=== PATIENT | male | born 1970 | race Caucasian/White ===

== ENCOUNTER 2022-11-29 12:30 | Emergency (ER) | payer BC, SELFPAY ==
--- NOTE | ~2022-11-29 | CT_ITS ---
EXAMINATION: CT BRAIN WITHOUT CONTRAST. CHEST X-RAY. CLINICAL INFORMATION: Dizziness. COMPARISON: None TECHNIQUE: 5 mm thin axial and reformatted 2 mm thin sagittal and coronal images of brain were obtained without contrast. DLP 769. This CT examination was performed using dose optimization technique as appropriate, variously including the following: Automated exposure control Adjustment of MA and/or KV according to patient size(this includes techniques or standardized protocols for targeted exams where dose is matched to indication/reason for exam; extremities or head. Use of iterative reconstruction techniques. Chest x-ray 2 views. FINDINGS: Chest x-ray: The lungs are well-expanded and clear. The heart size and pulmonary vascularity is normal. No gross bony abnormality seen except for minimal ventral mid dorsal spine spondylosis. Brain: There is no acute intra-axial, extra-axial bleed, masses or midline shift. There is no acute infarction in evolution. There is no edema. The mabry to white matter differentiation is maintained. The lateral ventricles are somewhat symmetrical but normal size. No posterior fossa abnormality seen. Mild atherosclerotic calcification of basilar artery is noted. Bone windows reveal sessile zeeshan hole findings along the right frontal and parietal lobe, likely from remote intervention. There is no scalp soft tissue abnormality. Bilateral paranasal sinuses and mastoid air cells are well-aerated. CT/CT head/brain wo IV con IMPRESSION: 1. Unremarkable chest exam. 2. No acute intracranial process seen.
[2022-11-29 12:32] VITALS: BP 164/89; PULSE 70; RESP 18; TEMP 37; O2SAT 99; BMI 33.3
--- NOTE | 2022-11-29 12:32 | ED_ITS ---
HPI - General Adult General Chief complaint: General Medical <BINH Meza - Last Filed: 11/29/22 12:36> Stated complaint: vertigo, rash on L arm <BINH Meza Last Filed: 11/29/22 12:36> Time Seen by Provider: 11/29/22 13:02 <BINH Meza Last Filed: 11/29/22 12:36> Source: patient <BINH Goins Last Filed: 11/29/22 18:37> Mode of arrival: ambulatory <BINH Goins Last Filed: 11/29/22 18:37> History of Present Illness HPI narrative: 52-year-old male with a past medical history of Meniere's disease, CAD s/p stent placement, HTN, diabetes, presenting to the ED complaining of intermittent room spinning dizziness since last week with rash noted to left upper arm x yesterday. Denies dizziness at present. Admits rash is pruritic. Denies fever, chills, headache, vision changes/loss, nausea/vomiting, chest pain/shortness of breath, abdominal pain, weakness <BINH Goins Last Filed: 11/29/22 18:37> Onset (ago): week(s) <BINH Goins Last Filed: 11/29/22 18:37> Related Data Home medications: Previous Rx's Medication Instructions Recorded meclizine 25 mg tablet 25 mg PO TID PRN dizziness #14 tabs 11/29/22 prednisone 10 mg tablet 10 mg PO DAILY #20 tabs 11/29/22 valacyclovir 1 gram tablet 1,000 mg PO Q8H 7 days #21 tabs 11/29/22 (Valtrex) <BINH Meza - Last Filed: 11/29/22 12:36> Allergies/adverse reactions: Allergies Allergy/AdvReac Type Severity Reaction Status Date / Time No Known Allergies Allergy Verified 11/29/22 12:32 <BINH Meza Last Filed: 11/29/22 12:36> Review of Systems Review of Systems: Constitutional: No Fever, No Chills, No Fatigue, No Malaise ENT/Mouth: No Ear Pain, No Nasal Congestion, No sore throat, No Rhinorrhea, No Swallowing Difficulty Eyes: No Eye Pain, No Swelling, No Redness, No Discharge, No Vision Changes Cardiovascular: No Chest Pain, No SOB, No Edema, No Palpitations Respiratory: No Cough, No Sputum, No Dyspnea Gastrointestinal: No Nausea, No Vomiting, No Diarrhea, No Constipation, No Abdominal pain Genitourinary: No Dysuria, No Urinary Frequency, No Hematuria, No Urinary Incontinence/retention, No Flank Pain Musculoskeletal: No joint pain, No Myalgias, No Joint Swelling Skin: No Skin Lesions, + rash Neuro: No Weakness, No Numbness, No Paresthesias, No Loss of Consciousness, + Dizziness, No Headache <BINH Goins - Last Filed: 11/29/22 18:37> Yes all other systems are reviewed and are negative <BINH Goins - Last Filed: 11/29/22 18:37> Constitutional: Constitutional: Reports as per HPI <BINH Goins - Last Filed: 11/29/22 18:37> Neurologic: Denies Abnormal speech present <BINH Goins Last Filed: 11/29/22 18:37> [facility] Past Medical History Attestation statement: The following information was validated with the patient. <BINH Goins Last Filed: 11/29/22 18:37> Social History Social History: Social History Advance Directives: No Advance Directives Information Provided: No <BINH Meza Last Filed: 11/29/22 12:36> Physical Exam ED Vital Signs: Vital Signs - 24 hr 11/29/22 12:32 11/29/22 14:28 11/29/22 14:31 Temperature 98.6 F Pulse Rate 70 71 75 Respiratory Rate 18 Blood Pressure 164/89 H 116/75 122/78 Pulse Oximetry 99 Oxygen Delivery Method Room Air 11/29/22 14:32 Temperature Pulse Rate 81 Respiratory Rate Blood Pressure 117/79 Pulse Oximetry Oxygen Delivery Method BMI result Body Mass Index 33.3 <BINH Meza Last Filed: 11/29/22 12:36> Vital Signs - 24 hr 11/29/22 12:32 11/29/22 14:28 11/29/22 14:31 Temperature 98.6 F Pulse Rate 70 71 75 Respiratory Rate 18 Blood Pressure 164/89 H 116/75 122/78 Pulse Oximetry 99 Oxygen Delivery Method Room Air 11/29/22 14:32 Temperature Pulse Rate 81 Respiratory Rate Blood Pressure 117/79 Pulse Oximetry Oxygen Delivery Method BMI result Body Mass Index 33.3 <BINH Goins Last Filed: 11/29/22 18:37> Const General: cooperative, healthy appearing, no acute distress, well developed, alert and awake <BINH Goins Last Filed: 11/29/22 18:37> Orientation/consciousness: patient oriented x3 <BINH Goins Last Filed: 11/29/22 18:37> Limitations: no limitations <BINH Goins Last Filed: 11/29/22 18:37> HENMT Head: Yes normal to inspection and Yes atraumatic <BINH Goins Last Filed: 11/29/22 18:37> Ears: hearing grossly normal bilaterally, external ears normal, TM normal on the right and mastoids normal <BINH Goins Last Filed: 11/29/22 18:37> General nose exam: Normal external nose present <BINH Goins Last Filed: 11/29/22 18:37> Face and sinus: Yes normal facial exam <BINH Goins Last Filed: 11/29/22 18:37> Mouth: Normal oral and palatal mucosa present <BINH Goins Last Filed: 11/29/22 18:37> Throat: Yes posterior oropharynx normal, Yes tonsils normal, Yes uvula midline and No uvula laterally displaced <BINH Goins Last Filed: 11/29/22 18:37> Eyes General: appearance normal, both eyes and all related structures <BINH Goins Last Filed: 11/29/22 18:37> Pupils: Equal, round and reactive pupils present <BINH Goins Last Filed: 11/29/22 18:37> EOM: EOMs intact bilaterally <BINH Goins Last Filed: 11/29/22 18:37> Neck Neck: Yes normal visual inspection, Yes no lymphadenopathy and Yes no meningeal signs <Kenia Rivera PA - Last Filed: 11/29/22 18:37> Resp Effort & Inspection: normal respiratory effort and no respiratory distress <Kenia Rivera PA - Last Filed: 11/29/22 18:37> Auscultation: clear to auscultation bilaterally <Kenia Rivera PA - Last Filed: 11/29/22 18:37> Cardio Rate: regular rate <Kenia Rivera PA - Last Filed: 11/29/22 18:37> Heart sounds: S1 normal heart sound present and S2 normal heart sound present <Kenia Rivera PA - Last Filed: 11/29/22 18:37> GI Inspection: Yes normal to inspection <Kenia Rivera PA - Last Filed: 11/29/22 18:37> Palpation (GI): Soft to palpation, nontender, no guarding and not rigid <Kenia Rivera PA - Last Filed: 11/29/22 18:37> General: Yes no CVA tenderness <Kenia Rivera PA - Last Filed: 11/29/22 18:37> Back/Spine/Pelvis Back: no CVA tenderness <Kenia Rivera PA - Last Filed: 11/29/22 18:37> Skin Other: + erythematous coalescing rash to left upper arm <Kenia Rivera PA - Last Filed: 11/29/22 18:37> Wounds: no wounds <Kenia Rivera PA - Last Filed: 11/29/22 18:37> Neuro General: patient oriented x3, gait normal, tone normal, moves all extremities, no meningeal signs, no focal motor deficits and CN's II-XI intact bilaterally <Kenia Rivera PA - Last Filed: 11/29/22 18:37> Cranial nerves: Yes CN's II-XII intact bilaterally, Yes Equal, round and reactive pupils present and Yes Bilaterally intact EOM present <Kenia Rivera PA - Last Filed: 11/29/22 18:37> Cognition (Neuro): normal cognition <Kenia Rivera PA - Last Filed: 11/29/22 18:37> Speech: No Abnormal speech present <BINH Goins Last Filed: 11/29/22 18:37> Gait exam (Neuro): Normal gait present <BINH Goins Last Filed: 11/29/22 18:37> Motor exam (neuro): 5/5 motor strength present throughout, Pronator motor function not present and no tremor noted <BINH Goins Last Filed: 11/29/22 18:37> Romberg Test: Negative <BINH Goins Last Filed: 11/29/22 18:37> Extrem General: Yes normal to inspection <BINH Goins Last Filed: 11/29/22 18:37> Course Course Course Narrative: RME performed by Renetta New PA-C. Patient is a 52 year old male presenting to the emergency department with a rash on his left upper arm and int ermittent dizziness. Patient states that he has a history of vertigo and this is similar to that but he wants to be checked. Labs and imaging ordered. Patient placed back in waiting room pending results and imaging. <BINH Meza Last Filed: 11/29/22 12:36> RME performed by Renetta New PA-C. Patient is a 52 year old male presenting to the emergency department with a rash on his left upper arm and intermittent dizziness. Patient states that he has a history of vertigo and this is similar to that but he wants to be checked. Labs and imaging ordered. Patient placed back in waiting room pending results and imaging. -BUN mildly elevated. Initial troponin 6.4 > will obtain 3 hour repeat -UA not infected. COVID-19/influenza/RSV negative -chest x-ray and head CT unremarkable. Orthostatic vital signs negative -1720--repeat troponin without 50% rise, mi unlikely Results discussed with patient including worrisome signs and symptoms and strict return precautions, and when to return to the emergency department. They verbalized understanding and feel safe for discharge at this time. <BINH Goins Last Filed: 11/29/22 18:37> Medical Decision Making Medical Decision Making MDM Narrative: 52-year-old male with a past medical history of Meniere's disease, CAD s/p stent placement, HTN, diabetes, presenting to the ED complaining of intermittent room spinning dizziness since last week with rash noted to left upper arm x yesterday. On exam vital signs stable, NAD, nontoxic appearing, no focal neuro deficits, ambulating with steady gait. Denies dizziness present. Rash left upper arm consistent with early shingles. Less likely dermatitis or urticaria. Concern for vertigo/BPPV. Low suspicion for ICH/CVA/TIA, ACS or PE. No evidence of Mchenry Barreto Plan: EKG, labs, UA, head CT, orthostatic vital signs <BINH Goins - Last Filed: 11/29/22 18:37> Differential Diagnosis Differential Diagnoses: The differential diagnosis associated with the presentation includes <BINH Goins - Last Filed: 11/29/22 18:37> as above <BINH Goins - Last Filed: 11/29/22 18:37> Lab Data MDM Lab Attestation statement: I reviewed the patient's lab results. <BINH Goins - Last Filed: 11/29/22 18:37> Result Diagrams: 11/29/22 14:01 11/29/22 14:01 <BINH Meza - Last Filed: 11/29/22 12:36> Labs: Lab Results 11/29/22 11/29/22 11/29/22 Range/Units 14:01 14:01 14:01 WBC 5.5 (4.8-10.8) X10*3/uL RBC 5.10 (4.60-5.80) X10*6/uL Hgb 14.8 (14.0-18.0) g/dl Hct 43.1 (42.0-52.0) % MCV 84.5 (80.0-98.0) fL MCH 29.0 (27.0-33.0) pg MCHC 34.3 (31.0-36.0) g/dl RDW 12.8 (11.0-16.0) % Plt Count 248 (160-400) X10*3/uL MPV 9.5 (9.4-12.4) fL Immature Gran % (Auto) 0.4 (0.0-0.4) % Neut % (Auto) 52.1 (45-73) % Lymph % (Auto) 29.2 (20-40) % [place] % (Auto) 12.3 H (2-11) % Eos % (Auto) 5.6 H (0-4) % Baso % (Auto) 0.4 (0-2) % Lymph # (Auto) 1.6 (1.2-4.9) X10*3/uL [place] # (Auto) 0.7 (0.1-1.2) X10*3/uL Eos # (Auto) 0.3 (0.0-0.4) X10*3/uL Baso # (Auto) 0.0 (0.0-0.2) X10*3/uL Abs Immat Gran (auto) 0.02 (0.00-0.03) X10*3/uL Absolute Neuts (auto) 2.9 (2.0-8.3) x10*3/uL Absolute Nucleated RBC 0.000 (0.0-0.012) X10*3/uL Nucleated RBC % (auto) 0.0 (0.0-0.2) /100WBC Sodium 138 (135-145) mmol/L Potassium 4.2 (3.3-5.1) mmol/L Chloride 102 (96-108) mmol/L Carbon Dioxide 26 (22-29) mmol/L Anion Gap 14 (12-20) BUN 21 H (9-16) mg/dL Creatinine 1.25 (0.5-1.4) mg/dL Estim Creat Clear Calc 79.7 Estimated GFR > 60 Random Glucose 99 (60-115) mg/dL Calcium 9.3 (8.4-10.2) mg/dL Magnesium 2.0 (1.6-2.6) mg/dL Total Bilirubin 0.7 (0.0-1.0) mg/dL AST 16 (5-37) U/L ALT 18 (0-40) U/L Alkaline Phosphatase 104 (39-117) U/L Troponin I High Sens (<3.5-35.0) ng/L Total Protein 7.8 (6.5-8.0) g/dL Albumin 4.5 (3.5-5.0) g/dL Urine Color Urine Appearance Urine pH (5.0-9.0) Ur Specific [place] (1.005-1.025) Urine Protein (Neg-Trace) mg/dL Urine Glucose (UA) (Negative) mg/dL Urine Ketones (Negative) mg/dL Urine Blood (Negative) Urine Nitrite (Negative) Ur Leukocyte Esterase (Negative) Urine RBC (0-2) /HPF Urine WBC (0-5) /HPF Ur Squamous Epith Cells (0-2) /HPF Urine Bacteria (None Seen) Hyaline Casts (0-2) /LPF Influenza Type A (PCR) NEGATIVE (Negative) Influenza Type B (PCR) NEGATIVE (Negative) RSV RNA Qual (PCR) NEGATIVE (Negative) SARS-CoV-2 RNA (RT-PCR) NEGATIVE (Negative) 11/29/22 11/29/22 11/29/22 Range/Units 14:01 14:48 16:49 WBC (4.8-10.8) X10*3/uL RBC (4.60-5.80) X10*6/uL Hgb (14.0-18.0) g/dl Hct (42.0-52.0) % MCV (80.0-98.0) fL MCH (27.0-33.0) pg MCHC (31.0-36.0) g/dl RDW (11.0-16.0) % Plt Count (160-400) X10*3/uL MPV (9.4-12.4) fL Immature Gran % (Auto) (0.0-0.4) % Neut % (Auto) (45-73) % Lymph % (Auto) (20-40) % [place] % (Auto) (2-11) % Eos % (Auto) (0-4) % Baso % (Auto) (0-2) % Lymph # (Auto) (1.2-4.9) X10*3/uL [place] # (Auto) (0.1-1.2) X10*3/uL Eos # (Auto) (0.0-0.4) X10*3/uL Baso # (Auto) (0.0-0.2) X10*3/uL Abs Immat Gran (auto) (0.00-0.03) X10*3/uL Absolute Neuts (auto) (2.0-8.3) x10*3/uL Absolute Nucleated RBC (0.0-0.012) X10*3/uL Nucleated RBC % (auto) (0.0-0.2) /100WBC Sodium (135-145) mmol/L Potassium (3.3-5.1) mmol/L Chloride (96-108) mmol/L Carbon Dioxide (22-29) mmol/L Anion Gap (12-20) BUN (9-16) mg/dL Creatinine (0.5-1.4) mg/dL Estim Creat Clear Calc Estimated GFR Random Glucose (60-115) mg/dL Calcium (8.4-10.2) mg/dL Magnesium (1.6-2.6) mg/dL Total Bilirubin (0.0-1.0) mg/dL AST (5-37) U/L ALT (0-40) U/L Alkaline Phosphatase (39-117) U/L Troponin I High Sens 6.4 7.0 (<3.5-35.0) ng/L Total Protein (6.5-8.0) g/dL Albumin (3.5-5.0) g/dL Urine Color Yellow Urine Appearance Clear Urine pH 5.5 (5.0-9.0) Ur Specific [place] 1.015 (1.005-1.025) Urine Protein Negative (Neg-Trace) mg/dL Urine Glucose (UA) >=1000 H (Negative) mg/dL Urine Ketones Negative (Negative) mg/dL Urine Blood Negative (Negative) Urine Nitrite Negative (Negative) Ur Leukocyte Esterase Negative (Negative) Urine RBC 0-2 (0-2) /HPF Urine WBC 0-5 (0-5) /HPF Ur Squamous Epith Cells 0-2 (0-2) /HPF Urine Bacteria None Seen (None Seen) Hyaline Casts 0-2 (0-2) /LPF Influenza Type A (PCR) (Negative) Influenza Type B (PCR) (Negative) RSV RNA Qual (PCR) (Negative) SARS-CoV-2 RNA (RT-PCR) (Negative) <BINH Meza - Last Filed: 11/29/22 12:36> Lab Results 11/29/22 11/29/22 11/29/22 Range/Units 14:01 14:01 14:01 WBC 5.5 (4.8-10.8) X10*3/uL RBC 5.10 (4.60-5.80) X10*6/uL Hgb 14.8 (14.0-18.0) g/dl Hct 43.1 (42.0-52.0) % MCV 84.5 (80.0-98.0) fL MCH 29.0 (27.0-33.0) pg MCHC 34.3 (31.0-36.0) g/dl RDW 12.8 (11.0-16.0) % Plt Count 248 (160-400) X10*3/uL MPV 9.5 (9.4-12.4) fL Immature Gran % (Auto) 0.4 (0.0-0.4) % Neut % (Auto) 52.1 (45-73) % Lymph % (Auto) 29.2 (20-40) % [place] % (Auto) 12.3 H (2-11) % Eos % (Auto) 5.6 H (0-4) % Baso % (Auto) 0.4 (0-2) % Lymph # (Auto) 1.6 (1.2-4.9) X10*3/uL [place] # (Auto) 0.7 (0.1-1.2) X10*3/uL Eos # (Auto) 0.3 (0.0-0.4) X10*3/uL Baso # (Auto) 0.0 (0.0-0.2) X10*3/uL Abs Immat Gran (auto) 0.02 (0.00-0.03) X10*3/uL Absolute Neuts (auto) 2.9 (2.0-8.3) x10*3/uL Absolute Nucleated RBC 0.000 (0.0-0.012) X10*3/uL Nucleated RBC % (auto) 0.0 (0.0-0.2) /100WBC Sodium 138 (135-145) mmol/L Potassium 4.2 (3.3-5.1) mmol/L Chloride 102 (96-108) mmol/L Carbon Dioxide 26 (22-29) mmol/L Anion Gap 14 (12-20) BUN 21 H (9-16) mg/dL Creatinine 1.25 (0.5-1.4) mg/dL Estim Creat Clear Calc 79.7 Estimated GFR > 60 Random Glucose 99 (60-115) mg/dL Calcium 9.3 (8.4-10.2) mg/dL Magnesium 2.0 (1.6-2.6) mg/dL Total Bilirubin 0.7 (0.0-1.0) mg/dL AST 16 (5-37) U/L ALT 18 (0-40) U/L Alkaline Phosphatase 104 (39-117) U/L Troponin I High Sens (<3.5-35.0) ng/L Total Protein 7.8 (6.5-8.0) g/dL Albumin 4.5 (3.5-5.0) g/dL Urine Color Urine Appearance Urine pH (5.0-9.0) Ur Specific [place] (1.005-1.025) Urine Protein (Neg-Trace) mg/dL Urine Glucose (UA) (Negative) mg/dL Urine Ketones (Negative) mg/dL Urine Blood (Negative) Urine Nitrite (Negative) Ur Leukocyte Esterase (Negative) Urine RBC (0-2) /HPF Urine WBC (0-5) /HPF Ur Squamous Epith Cells (0-2) /HPF Urine Bacteria (None Seen) Hyaline Casts (0-2) /LPF Influenza Type A (PCR) NEGATIVE (Negative) Influenza Type B (PCR) NEGATIVE (Negative) RSV RNA Qual (PCR) NEGATIVE (Negative) SARS-CoV-2 RNA (RT-PCR) NEGATIVE (Negative) 11/29/22 11/29/22 11/29/22 Range/Units 14:01 14:48 16:49 WBC (4.8-10.8) X10*3/uL RBC (4.60-5.80) X10*6/uL Hgb (14.0-18.0) g/dl Hct (42.0-52.0) % MCV (80.0-98.0) fL MCH (27.0-33.0) pg MCHC (31.0-36.0) g/dl RDW (11.0-16.0) % Plt Count (160-400) X10*3/uL MPV (9.4-12.4) fL Immature Gran % (Auto) (0.0-0.4) % Neut % (Auto) (45-73) % Lymph % (Auto) (20-40) % [place] % (Auto) (2-11) % Eos % (Auto) (0-4) % Baso % (Auto) (0-2) % Lymph # (Auto) (1.2-4.9) X10*3/uL [place] # (Auto) (0.1-1.2) X10*3/uL Eos # (Auto) (0.0-0.4) X10*3/uL Baso # (Auto) (0.0-0.2) X10*3/uL Abs Immat Gran (auto) (0.00-0.03) X10*3/uL Absolute Neuts (auto) (2.0-8.3) x10*3/uL Absolute Nucleated RBC (0.0-0.012) X10*3/uL Nucleated RBC % (auto) (0.0-0.2) /100WBC Sodium (135-145) mmol/L Potassium (3.3-5.1) mmol/L Chloride (96-108) mmol/L Carbon Dioxide (22-29) mmol/L Anion Gap (12-20) BUN (9-16) mg/dL Creatinine (0.5-1.4) mg/dL Estim Creat Clear Calc Estimated GFR Random Glucose (60-115) mg/dL Calcium (8.4-10.2) mg/dL Magnesium (1.6-2.6) mg/dL Total Bilirubin (0.0-1.0) mg/dL AST (5-37) U/L ALT (0-40) U/L Alkaline Phosphatase (39-117) U/L Troponin I High Sens 6.4 7.0 (<3.5-35.0) ng/L Total Protein (6.5-8.0) g/dL Albumin (3.5-5.0) g/dL Urine Color Yellow Urine Appearance Clear Urine pH 5.5 (5.0-9.0) Ur Specific [place] 1.015 (1.005-1.025) Urine Protein Negative (Neg-Trace) mg/dL Urine Glucose (UA) >=1000 H (Negative) mg/dL Urine Ketones Negative (Negative) mg/dL Urine Blood Negative (Negative) Urine Nitrite Negative (Negative) Ur Leukocyte Esterase Negative (Negative) Urine RBC 0-2 (0-2) /HPF Urine WBC 0-5 (0-5) /HPF Ur Squamous Epith Cells 0-2 (0-2) /HPF Urine Bacteria None Seen (None Seen) Hyaline Casts 0-2 (0-2) /LPF Influenza Type A (PCR) (Negative) Influenza Type B (PCR) (Negative) RSV RNA Qual (PCR) (Negative) SARS-CoV-2 RNA (RT-PCR) (Negative) <BINH Goins - Last Filed: 11/29/22 18:37> Independent Interpretation I performed an independent interpretation of an: EKG and CT Scan <BINH Goins Last Filed: 11/29/22 18:37> Radiology Impression Discussion of test interpretation with radiology: I have reviewed the radiologist's reading. <BINH Goins Last Filed: 11/29/22 18:37> Prescription Management I considered prescription management with: Pain Medication and Antiviral <BINH Goins Last Filed: 11/29/22 18:37> Discharge Plan Discharge Clinical Impression: Shingles, Dizziness, nonspecific <BINH Meza Last Filed: 11/29/22 12:36> Patient Disposition: Home, Self-Care <BINH Meza Last Filed: 11/29/22 12:36> Instructions: Shingles (ED), Dizziness (ED) <BINH Meza Last Filed: 11/29/22 12:36> Additional Instructions: Your blood work and imaging studies were reassuring. Her rash appears to look like shingles. This is contagious. Please avoid elderly, children, and people Meclizine is for dizziness Prednisone as a steroid, Valtrex as an antiviral medication. This rash is contagious until a crusts over If symptoms persist or worsen, constant dizziness, headache, chest pain or shortness of breath return to the emergency department <BINH Meza Last Filed: 11/29/22 12:36> Prescriptions: New prednisone 10 mg tablet 10 mg PO DAILY Qty: 20 0RF Taper: Prednisone 40 mg daily for 3 Days and 0 Hour 30 mg daily for 3 Days and 0 Hour 20 mg daily for 3 Days and 0 Hour 10 mg daily for 3 Days and 0 Hour Rx Instructions: prednisone 10 mg: take 4 tablets (40 mg) for 2 days; 3 tablets (30 mg) for 2 days; 2 (20mg) tablets for 2 days and then 1 (10mg) tablet for 2 days meclizine 25 mg tablet 25 mg PO TID PRN (Reason: dizziness) Qty: 14 0RF valacyclovir [Valtrex] 1 gram tablet 1,000 mg PO Q8H 7 Days Qty: 21 0RF <BINH Meza - Last Filed: 11/29/22 12:36> Referrals: Physician,Nonstaff [Primary Care Provider] - 5 days <BINH Meza - Last Filed: 11/29/22 12:36> Stand Alone Forms: Work/School Release <BINH Meza - Last Filed: 11/29/22 12:36> Interventions: ED Discharge Assessment Last Done: 11/29/22 17:32 <BINH Meza - Last Filed: 11/29/22 12:36> Discharge Date/Time: 11/29/22 17:33 <BINH Meza - Last Filed: 11/29/22 12:36>
--- NOTE | 2022-11-29 12:37 | ECG_ITS ---
Test Reason : dizziness Blood Pressure : / mmHG Vent. Rate : 069 BPM Atrial Rate : 069 BPM P-R Int : 252 ms QRS Dur : 078 ms QT Int : 384 ms P-R-T Axes : 054 015 034 degrees QTc Int : 411 ms Sinus rhythm with 1st degree A-V block Otherwise normal ECG No previous ECGs available Referred By: Renetta New Electronically Signed By:LONNIE BLANCO
[2022-11-29 14:08] LABS: MANUAL DIFF FLAG NO
[2022-11-29 14:20] LABS: Basophils Percent Auto 0.4 % (0-2); Eosinophils Absolute Auto 0.3 X10*3/uL (0.0-0.4); Eosinophils Percent Auto 5.6 % (0-4); Hematocrit 43.1 % (42.0-52.0); Hemoglobin 14.8 g/dl (14.0-18.0); Imm Gran Abs Auto 0.02 X10*3/uL (0.00-0.03); Imm Gran Pct Auto 0.4 % (0.0-0.4); Lymphocytes Absolute Auto 1.6 X10*3/uL (1.2-4.9); Lymphocytes Percent Auto 29.2 % (20-40); Mean Corpuscular HGB Conc 34.3 g/dl (31.0-36.0); Mean Corpuscular Volume 84.5 fL (80.0-98.0); Mean Platelet Volume 9.5 fL (9.4-12.4); Monocytes Absolute Auto 0.7 X10*3/uL (0.1-1.2); Monocytes Percent Auto 12.3 % (2-11); Neutrophils Absolute Auto 2.9 x10*3/uL (2.0-8.3); Neutrophils Percent Auto 52.1 % (45-73); Platelet Count 248 X10*3/uL (160-400); Red Cell Distribution Width 12.8 % (11.0-16.0); White Blood Count 5.5 X10*3/uL (4.8-10.8)
[2022-11-29 14:22] LABS: Alanine Aminotransferase 18 U/L (0-40); Albumin Level 4.5 g/dL (3.5-5.0); Alkaline Phosphatase 104 U/L (39-117); Anion Gap 14 (12-20); Aspartate Amino Transferase 16 U/L (5-37); Bilirubin Total 0.7 mg/dL (0.0-1.0); Blood Urea Nitrogen 21 mg/dL (9-16); Calcium 9.3 mg/dL (8.4-10.2); Carbon Dioxide 26 mmol/L (22-29); Chloride 102 mmol/L (96-108); Creatinine Clr Calc Pharmacy 79.7; Estimated Glomerular Filt Rate > 60; Glucose Random 99 mg/dL (60-115); Potassium 4.2 mmol/L (3.3-5.1); Sodium 138 mmol/L (135-145); Total Protein 7.8 g/dL (6.5-8.0)
[2022-11-29 14:28] VITALS: BP 116/75; PULSE 71
[2022-11-29 14:30] LABS: Troponin-I High Sensitivity 6.4 ng/L (<3.5-35.0)
[2022-11-29 14:31] VITALS: BP 122/78; PULSE 75
[2022-11-29 14:32] VITALS: BP 117/79; PULSE 81
[2022-11-29 14:51] LABS: Influenza A PCR NEGATIVE (Negative); Influenza B PCR NEGATIVE (Negative); Resp Syncy Virus RNA Qual PCR NEGATIVE (Negative); SARS COV2 PCR INHOUSE NEGATIVE (Negative)
[2022-11-29 14:56] LABS: Appearance Urine Clear; Color Urine Yellow; Glucose Urine UA >=1000 mg/dL (Negative); Leukocyte Esterase Urine Negative (Negative); Nitrite Urine Negative (Negative); PH 5.5 (5.0-9.0); Specific Gravity - Urine 1.015 (1.005-1.025); UMIC TRIGGER UACC YES; Urine Blood Negative (Negative); Urine Ketones Negative (Negative); Urine Protein Negative (Neg-Trace)
[2022-11-29 15:03] LABS: Bacteria Urine None Seen (None Seen); Hyaline Casts Urine 0-2 /LPF (0-2); RBC Urine 0-2 /HPF (0-2); Squamous Epithelial Cell Urine 0-2 /HPF (0-2); WBC Urine 0-5 /HPF (0-5)
== END 2022-11-29 17:33 | disposition home or self-care (01) ==
PROVIDERS: Physician Assistant; Physician Assistant Medical; Emergency Provider Emergency Medicine Emergency Medical Services
DX: B02.9 Zoster without complications (principal); R42 Dizziness and giddiness; Z20.822 Contact with and (suspected) exposure to COVID-19; Z20.828 Contact with and (suspected) exposure to other viral communicable diseases
CPT/HCPCS: 0241U; 36415; 70450; 71046; 80053; 81001; 83735; 84484; 85025; 93005; 99283; 99284

== ENCOUNTER 2024-07-28 16:08 | Emergency (ER) | payer OTHER, SELFPAY ==
--- NOTE | ~2024-07-28 | XR_ITS ---
EXAMINATION: XR HIP, LEFT CLINICAL INFORMATION: Pain, status post fall. Patient reports fall 2 days ago, bruising this morning. COMPARISON: None available. TECHNIQUE: Pelvis 2 views. 2 views. of the left hip. FINDINGS: Left hip: No evidence of acute fracture. No dislocation. Mild acetabular sclerosis suggesting mild arthritis. No abnormal soft tissue calcification. There is soft tissue prominence along the lateral aspect of the hip, which could reflect a soft tissue hematoma. Pelvis: Mild right hip arthritis, with acetabular sclerosis. No acute fracture in the proximal right femur. SI joints and symphysis pubis are intact. No acute pelvic fracture is identified. Spinal fusion hardware in the lower lumbar spine. XR/XR hip LT w PEL1V IMPRESSION: No evidence of acute left hip fracture. If there are ongoing symptoms/clinical concern, recommend follow-up imaging/cross-sectional imaging. Soft tissue swelling along lateral aspect of the hip could reflect soft tissue hematoma. Mild right hip arthritis. No acute pelvic fracture seen. Electronically signed by: Kwan Zacarias MD 07/28/2024 05:36 PM EDT
[2024-07-28 16:24] VITALS: BP 137/86; PULSE 70; RESP 16; TEMP 36.9; O2SAT 98; BMI 31.0
--- NOTE | 2024-07-28 16:25 | ED.LOWEXIN ---
HPI - Extremity Injury (Lower) General Chief Complaint: Extremity Injury, Lower Stated Complaint: left hip inj Time Seen by Provider: 07/28/24 17:13 Source: patient Mode of arrival: ambulatory Limitations: no limitations History of Present Illness ED Provider: Venkat REGALADO HPI Narrative: This is a 54-year-old male presenting with left-sided hip pain status post slip and fall a few days ago. He reports he slipped on a tile, landed onto his left hip. No head strike no loss of consciousness. He is just worried because he is having pain to his left buttock/hip region, feels like a sore sensation worse with movement palpation better at rest. Patient not on blood thinners. Ambulatory all day without difficulty. No back pain, numbness, tingling, urinary/bowel incontinence or retention, fevers, chills, headache, vision changes, dizziness, weakness, chest pain or shortness of breath Related Data Previous Rx's ?Medication ?Instructions ?Recorded meclizine 25 mg tablet 25 mg PO TID PRN dizziness #14 tabs 11/29/22 prednisone 10 mg tablet 10 mg PO DAILY #20 tabs 11/29/22 valacyclovir 1 gram tablet 1,000 mg PO Q8H 7 days #21 tabs 11/29/22 (Valtrex) lidocaine 5 % topical patch 1 patch topical DAILY PRN pain #15 07/28/24 ea naproxen 500 mg tablet 500 mg PO BID PRN pain #14 tabs 07/28/24 Allergies Allergy/AdvReac Type Severity Reaction Status Date / Time No Known Allergies Allergy Verified 07/28/24 16:26 Review of Systems Review of Systems: Yes all other systems are reviewed and are negative [facility] Past Medical History Attestation statement: The following information was validated with the patient. Source: old records reviewed and nursing notes reviewed Social History Social History Advance Directives: No Advance Directives Information Provided: No Do you have a plan to hurt others: No Plan Physical Exam Vital Signs: Vital Signs: Last Vital Signs Temp 98.5 F 07/28/24 16:24 Pulse 70 07/28/24 16:24 Resp 16 07/28/24 16:24 BP 137/86 07/28/24 16:24 Pulse Ox 98 09/05/24 16:24 O2 Del Method Room Air 07/28/24 16:24 BMI result Body Mass Index 31.0 vss Appearance: Alert.? Oriented X3.? No acute distress.? Head: Normocephalic, atraumatic, no step-offs or deformities Eyes: Pupils equal, round and reactive to light.? Neck: Normal inspection.? Neck supple.? CVS: Normal heart rate and rhythm.? Pulses normal.? Respiratory: No respiratory distress.? Breath sounds normal.? Abdomen: Soft and nontender.? Skin: Skin warm and dry.? Normal skin color.? Normal skin turgor.? Extremities: No lower extremity edema.? No calf ttp. 5/5 strength to bilateral upper and lower extremities + large area of ecchymosis to the left buttocks. No induration. Patient with full range of motion to bilateral hips, knees, ankles. No crepitus. Back: No midline tenderness, no C-spine tenderness, full range of motion, no CVA tenderness bilaterally Neuro: Oriented X 3.? No motor deficit.? No sensory deficit patient is ambulatory with slight limp favoring his right side Course Course Course Narrative: This is a Rapid Medical Examination (RME) performed by Amauri Aguiar PA-C in triage. Full HPI, ROS, assessment and treatment plan per primary provider in the Main ED. 54 yo male presents to the ER for evaluation of left hip pain and bruising s/p fall 2 days ago. ambulated with a limp into triage. Plan: XR left hip, full joint evaluation in [facility] Reevaluation(s) Reevaluation #1: X-ray pending. Educated patient on diagnosis and treatment plan, answered all question, patient verbalizes understanding. At this time patient will be discharged home, advised to return with new or worsening symptoms. Educated on worrisome signs and symptoms and when to return. At this time I feel comfortable discharge home. Time: 17:35 Reevaluation #2: Soft tissue swelling along lateral aspect of the hip soft tissue hematoma. Time: 18:00 Medications Administered Discontinued Medications Generic Name Dose Route Start Last Admin Trade Name Freq PRN Reason Stop Dose Admin Lidocaine 1 patch 07/28/24 17:35 07/28/24 17:52 Lidocaine 4 % Patch Adh..Patch TRANSDERMA 07/28/24 17:36 1 patch ONCE ONE Administration Protocol Naproxen 500 mg 07/28/24 17:35 07/28/24 17:52 Naproxen 500 Mg Tablet PO 07/28/24 17:36 500 mg ONCE ONE Administration Medical Decision Making Medical Decision Making [facility] Narrative: 54-year-old male presents with bruise to left buttock status post slip and fall few days ago while in [place]. No head strike or loss of consciousness. Not on blood thinners. Physical exam significant for + large area of ecchymosis to the left buttocks. No induration. Patient with full range of motion to bilateral hips, knees, ankles. No crepitus. History and physical exam concerning for ecchymosis to the left buttocks likely secondary to trauma. Unlikely hip fracture, dislocation no signs of neurovascular compromise acute threat to Ortiz, arterial or venous occlusion of lower extremities. I do not suspect cauda equina or cord compression. No signs of expanding muscular hematoma Plan imaging Differential Diagnosis Differential Diagnoses: The differential diagnosis associated with the presentation includes History and physical exam concerning for ecchymosis to the left buttocks likely secondary to trauma. Unlikely hip fracture, dislocation no signs of neurovascular compromise acute threat to Ortiz, arterial or venous occlusion of lower extremities. I do not suspect cauda equina or cord compression. No signs of expanding muscular hematoma Admission/Observation Consideration of admission/observation: Escalation of care including admission/observation considered Unlikely Independent Interpretation I performed an independent interpretation of an: Plain X-Ray Radiology Impression Discussion of test interpretation with radiology: I have reviewed the radiologist's reading. External Record Review External record reviewed: Outpatient record Prescription Management I considered prescription management with: Pain Medication (Naproxen) Critical Care Time Critical Care Time Critical Care Time: No Discharge Plan Discharge Clinical Impression: Acute pain of left hip Patient Disposition: Home, Self-Care Instructions: Arthralgia (ED), Hip Pain (ED) Additional Instructions: Take your medications as prescribed. If you were prescribed antibiotics today, it is important that you take your medication to their entirety, do not skip any doses, do not finish them early. Follow-up with your primary care provider this week. Return to the emergency department with new or worsening symptoms. Such as fevers, chills, chest pain, shortness of breath, nausea, vomiting, dizziness, headache, vision changes, lethargy In case of emergency call 911 Naproxen has been sent to your pharmacy, you tolerated this well in the department. Please take this as prescribed do not take this with ibuprofen, or other NSAIDs, do not mix this with alcohol. Side effects of this medication including increased risk for bleeding and possible kidney injury. XR/XR hip LT w PEL1V IMPRESSION: No evidence of acute left hip fracture. If there are ongoing symptoms/clinical concern, recommend follow-up imaging/cross-sectional imaging. Soft tissue swelling along lateral aspect of the hip could reflect soft tissue hematoma. Mild right hip arthritis. No acute pelvic fracture seen. Prescriptions: New naproxen 500 mg tablet 500 mg PO BID PRN (Reason: pain) Qty: 14 0RF Rx Instructions: Take with food lidocaine 5 % adhesive patch,medicated 1 patch topical DAILY PRN (Reason: pain) Qty: 15 0RF Rx Instructions: leave on most painful area for up to 12 hrs No Action prednisone 10 mg tablet 10 mg PO DAILY Qty: 20 0RF Taper: Prednisone 40 mg daily for 3 Days and 0 Hour 30 mg daily for 3 Days and 0 Hour 20 mg daily for 3 Days and 0 Hour 10 mg daily for 3 Days and 0 Hour Rx Instructions: prednisone 10 mg: take 4 tablets (40 mg) for 2 days; 3 tablets (30 mg) for 2 days; 2 (20mg) tablets for 2 days and then 1 (10mg) tablet for 2 days meclizine 25 mg tablet 25 mg PO TID PRN (Reason: dizziness) Qty: 14 0RF valacyclovir [Valtrex] 1 gram tablet 1,000 mg PO Q8H 7 Days Qty: 21 0RF Referrals: Randy Rm ROD TAPE OPERATOR [Primary Care Provider] - 2 days Stand Alone Forms: Work/School Release Print Language: Italian
[2024-07-28] MEDS: NaPROXEN 500 MG TABLET PO (17:52)
[2024-07-28] MEDS: Lidocaine 4 % Patch ADH..PATCH 1 PATCH TRANSDERMA (17:52)
[2024-07-28 18:16] VITALS: BP 129/86; PULSE 60; RESP 16; TEMP 36.5; O2SAT 98
[2024-07-28 18:21] VITALS: BP 129/86; PULSE 60; RESP 16; TEMP 36.5; O2SAT 98
== END 2024-07-28 18:33 | disposition home or self-care (01) ==
PROVIDERS: Emergency Provider Emergency Medicine; PCP Nurse Practitioner Acute Care
DX: M25.552 Pain in left hip (principal); Z91.81 History of falling
CPT/HCPCS: 73502; 99283